=== PATIENT | female | born 1960 | race Two or more races ===

== ENCOUNTER 2019-11-11 14:06 | Outpatient (CLI) | payer OTHER | END 2019-11-11 14:35 | disposition home or self-care (01) | LOC: RAD 14:06 | DX: R05 Cough (principal); R53.81 Other malaise ==

== ENCOUNTER 2020-04-15 13:53 | Outpatient (CLI) | payer OTHER | END 2020-04-15 14:02 | disposition home or self-care (01) | LOC: RAD 13:53 | DX: M54.5 Low back pain (principal); M79.641 Pain in right hand; M15.0 Primary generalized (osteo)arthritis ==

== ENCOUNTER → 2020-06-01 09:45 | Outpatient (CLI) | payer OTHER | END | disposition home or self-care (01) | LOC: LAB 05-29 13:59 | PROVIDERS: ATTEND Internal Medicine Rheumatology | DX: R70.0 Elevated erythrocyte sedimentation rate (principal); E03.8 Other specified hypothyroidism; M06.09 Rheumatoid arthritis without rheumatoid factor, multiple sites; E55.9 Vitamin D deficiency, unspecified ==

== ENCOUNTER 2020-06-01 14:17 | Outpatient (CLI) | payer OTHER | END 2020-06-01 14:21 | disposition home or self-care (01) | LOC: NUCLEAR 14:17 | PROVIDERS: ATTEND Internal Medicine Rheumatology | DX: M81.0 Age-related osteoporosis without current pathological fracture (principal) ==

== ENCOUNTER 2020-11-24 07:35 | Outpatient (CLI) | payer OTHER | END 2020-11-24 07:39 | disposition home or self-care (01) | LOC: NUCLEAR 07:35 | PROVIDERS: ATTEND Internal Medicine Cardiovascular Disease | DX: R00.2 Palpitations (principal); I20.9 Angina pectoris, unspecified | CPT/HCPCS: 78452; 93017; A9500 ==

== ENCOUNTER 2021-01-12 08:00 | Outpatient (CLI) | payer OTHER ==
[~2021-01-12 08:00] MED LIST: DICLOFENAC POTA50 MG PO; NORFLEX100MG PO
== END 2021-01-12 10:47 | disposition home or self-care (01) ==
LOC: RAD 08:00 → MRI 08:30 → RAD 08:30 → MAMO-SONO 08:45 → RAD 10:47
PROVIDERS: ATTEND Student in an Organized Health Care Education/Training Program
DX: R92.1 Mammographic calcification found on diagnostic imaging of breast (principal); Z12.31 Encounter for screening mammogram for malignant neoplasm of breast; E03.8 Other specified hypothyroidism; N64.4 Mastodynia; S50.00XA Contusion of unspecified elbow, initial encounter; M54.2 Cervicalgia; Z01.89 Encounter for other specified special examinations; I10 Essential (primary) hypertension; M25.521 Pain in right elbow
CPT/HCPCS: 73221

== ENCOUNTER → 2021-01-12 08:03 | Outpatient (CLI) | payer OTHER | END | disposition home or self-care (01) | LOC: LAB | PROVIDERS: ATTEND Student in an Organized Health Care Education/Training Program | DX: E03.8 Other specified hypothyroidism (principal); Z00.00 Encounter for general adult medical examination without abnormal findings ==

== ENCOUNTER 2021-11-24 07:11 | Outpatient (CLI) | payer OTHER | END 2021-11-24 15:20 | disposition home or self-care (01) | LOC: MAMO-SONO 07:11 | PROVIDERS: ATTEND Student in an Organized Health Care Education/Training Program | DX: Z12.31 Encounter for screening mammogram for malignant neoplasm of breast (principal); N64.4 Mastodynia ==

== ENCOUNTER 2022-12-05 10:25 | Outpatient (CLI) | payer OTHER | END 2022-12-05 13:30 | disposition home or self-care (01) | LOC: LAB 10:25 | PROVIDERS: ATTEND Radiology Diagnostic Radiology | DX: R10.2 Pelvic and perineal pain (principal) ==

== ENCOUNTER 2022-12-06 10:00 | Outpatient (CLI) | payer OTHER | END 2022-12-06 10:20 | disposition home or self-care (01) | LOC: MRI 10:00 | PROVIDERS: ATTEND Obstetrics & Gynecology | DX: R10.2 Pelvic and perineal pain (principal); N87.0 Mild cervical dysplasia | CPT/HCPCS: 72197 ==

== ENCOUNTER 2023-05-19 10:23 | Outpatient (CLI) | payer OTHER | END 2023-05-19 10:26 | disposition home or self-care (01) | LOC: MRI 10:23 | DX: M54.50 Low back pain, unspecified (principal); M51.9 Unspecified thoracic, thoracolumbar and lumbosacral intervertebral disc disorder; M79.606 Pain in leg, unspecified | CPT/HCPCS: 72148 ==

== ENCOUNTER 2025-01-22 12:32 | Emergency (ER) | payer OTHER ==
[~2025-01-22] VITALS: Ht 162.6 cm; Wt 65.8 kg
[~2025-01-22 12:32] MED LIST changes: +GABAPENTIN300 M2 PO; +MEDROLPACK PO
[2025-01-22 13:01] VITALS: BP 105/68; O2SAT 100
[2025-01-22] MEDS ORDERED: SYNTHROID125 MCG PO (13:01)
[2025-01-22] MEDS ORDERED: 0.9 % SODIUM CHLORIDE 1,000 ML IV ONE (15:15)
[2025-01-22 15:53] LABS: BASO % 0.1 % (0.1-1.2); EOS # 0.02 (0.04-0.54); EOS % 0.2 % (0.7-7.0); LYMPH # 0.87 (1.18-3.74); LYMPH % 10.2 % (19.3-53.1); MEAN PLATELET VOLUME 12.70 fl (9.4-12.4); MONO # 0.42 (0.24-0.82); MONO % 4.9 % (4.7-12.5); NEUT # 7.19 (1.56-6.13); NEUT % 84.2 % (34.0-71.1); RED CELL DISTRIBUTION WIDTH 11.7 % (11.6-14.4)
[2025-01-22 16:18] LABS: ALT/SGPT 20.0 U/L (12-78); AST/SGOT 21.0 U/L (15-37); BILIRUBIN TOTAL 0.45 mg/dL (0.3-1.2); BUN CREA RATIO 17.0 (7.0-25.0); CREATININE SERUM 0.76 mg/dL (0.55-1.02); GFR 76.62; GLOBULINA 2.9 G/DL (2.4-3.5); GLUCOSE FASTING 102.0 mg/dL (65-100); OSMOLALITY SERUM 283.0 MOSM/KG (275-295)
[2025-01-22 16:22] LABS: INR 1.01
[2025-01-22 17:14] LABS: URINE APPEARANCE Clear; URINE BILIRRUBIN Negative (NEGATIVE); URINE BLOOD Negative; URINE COLOR Yellow; URINE GLUCOSE Negative (NEGATIVE); URINE LEUKOCYTE Trace; URINE NITRATE Negative; URINE PROTEIN Negative (NEGATIVE); URINE UROBILINOGEN 0.2 E.U./dl
[2025-01-22 17:15] LABS: URINE BACTERIA 209.9 uL (0.0-1933); URINE EPITHELIAL CELLS 21.2 uL (0.0-38.8); URINE RBC 9.8 uL (0.0-20.8); URINE WBC 14.2 uL (0.0-23.2)
[2025-01-22 17:16] LABS: URINE CAST 0.43 uL (0.0-1.40); URINE KETONE 40 (NEGATIVE)
== END 2025-01-22 18:12 | disposition home or self-care (01) ==
LOC: ER 12:32
PROVIDERS: General Practice
DX: R55 Syncope and collapse (principal); E03.8 Other specified hypothyroidism